=== PATIENT | female | born 1970 | race Caucasian/White ===

== ENCOUNTER 2018-12-27 22:42 | Emergency (ER) | payer BC ==
--- NOTE | 2018-12-27 23:05 | ED ---
Complex/Multi-Sys Presentation - HPI Summary HPI Summary: This patient is a 48 year old F presenting to ED with a chief complaint of numbness in R hand and forearm since [employer]. The patient was in pharmacy and was exposed to Sevoflurane, which is usually stored in a glass bottle. She touched it with her hand and held it. Patient was given Benadryl 25mg PO in Pharmacy [employer]. The patient rates the pain 0/10 in severity. Symptoms aggravated by nothing. Symptoms alleviated by nothing. - History Of Current Complaint Chief Complaint: EDAllergicReaction Time Seen by Provider: 12/27/18 22:53 Hx Obtained From: Patient Onset/Duration: Sudden Onset, Lasting Minutes, Still Present Timing: Constant Severity Currently: None Aggravating Factor(s): nothing Alleviating Factor(s): nothing Associated Signs And Symptoms: Positive: Other - numbness in R hand and forearm - Allergies/Home Medications Allergies/Adverse Reactions: Allergies Allergy/AdvReac Type Severity Reaction Status Date / Time anesthectics Allergy Anaphylatic Uncoded 12/27/18 22:44 Shock PMH/Surg Hx/FS Hx/Imm Hx Endocrine/Hematology History: Denies: Hx Diabetes Cardiovascular History: Denies: Hx Coronary Artery Disease, Hx Hypertension Infectious Disease History: No Infectious Disease History: Denies: Traveled Outside the [place] in Last 30 Days - Family History Known Family History: Positive: Diabetes, Other Negative: Blood Disorder Family History: CA and CHF in mother - Social History Alcohol Use: None Hx Substance Use: No Substance Use Type: Reports: None Hx Tobacco Use: No Smoking Status (MU): Never Smoked Tobacco Review of Systems Negative: Fever Positive: Numbness - in R hand and forearm due to exposure to Sevoflurane All Other Systems Reviewed And Are Negative: Yes Physical Exam - Summary Physical Exam Summary: VITAL SIGNS: Reviewed. GENERAL: Patient is a well-developed and nourished FEMALE who is lying comfortable in the stretcher. Patient is not in any acute respiratory distress. Patient seems anxious and concerned. HEAD AND FACE: No signs of trauma. No ecchymosis, hematomas or skull depressions. No sinus tenderness. EYES: PERRLA, EOMI x 2, No injected conjunctiva, no nystagmus. EARS: Hearing grossly intact. Ear canals and tympanic membranes are within normal limits. MOUTH: Oropharynx within normal limits. NECK: Supple, trachea is midline, no adenopathy, no JVD, no carotid bruit, no c- spine tenderness, neck with full ROM. CHEST: Symmetric, no tenderness at palpation LUNGS: Clear to auscultation bilaterally. No wheezing or crackles. CVS: Regular rate and rhythm, S1 and S2 present, no murmurs or gallops appreciated. ABDOMEN: Soft, non-tender. No signs of distention. No rebound no guarding, and no masses palpated. Bowel sounds are normal. EXTREMITIES: FROM in all major joints, no edema, no cyanosis or clubbing. Decreased sensation in R side from hand to distal forearm. NEURO: Alert and oriented x 3. No acute neurological deficits. Speech is normal and follows commands. SKIN: Dry and warm Triage Information Reviewed: Yes Vital Signs On Initial Exam: Initial Vitals Temp Pulse Resp BP Pulse Ox 97.3 F 63 20 173/79 99 12/27/18 22:44 12/27/18 22:44 12/27/18 22:44 12/27/18 22:44 12/27/18 22:44 Vital Signs Reviewed: Yes Diagnostics - Vital Signs Vital Signs Temp Pulse Resp BP Pulse Ox 12/27/18 22:51 51 100 12/27/18 22:44 97.3 F 63 20 173/79 99 - Laboratory Lab Statement: Any lab studies that have been ordered have been reviewed, and results considered in the medical decision making process. Re-Evaluation - Re-Evaluation First Eval Re-Evaluation Time: 23:52 Change: Improved Comment: The patient feels better. She no longer feels numbness. Discussed plan for discharge. Patient understands and agrees with this plan. Complex Multi-Symp Course/Dx Assessment/Plan: This patient is a 48 year old F presenting to ED with a chief complaint of numbness in R hand and forearm since [employer] s/p exposure to Sevoflurane. Sevoflurane is short acting so should be out of her system by now. Her sx is most likely anxiety. She will be kept in ED for a while to be watched. Patient was reassured. The patient no longer feels numb in the ED. Patient will be discharged with dx of accidental medication exposure. Patient understands and agrees with this plan. - Diagnoses Differential Diagnoses/HQI/PQRI: Other - accidental medication exposure Provider Diagnoses: Accidental medication error Discharge - Sign-Out/Discharge Documenting (check all that apply): Patient Departure - discharge Patient Received Moderate/Deep Sedation with Procedure: No - Discharge Plan Condition: Stable Disposition: HOME Patient Education Materials: Paresthesia (ED) Referrals: [facility] [Outside] - 3 Days Additional Instructions: PLEASE RETURN TO THE ED TO IMMEDIATELY FOR WORSENING OR CONCERNING SYMPTOMS. - Attestation Statements Document Initiated by Scribe: Yes Documenting Scribe: Herberth Randall Provider For Whom Scribe is Documenting (Include Credential): Fred Hess MD Scribe Attestation: IHerberth, scribed for Fred Hess MD on 12/27/18 at 1275. Status of Scribe Document: Ready
[2018-12-27 23:53] VITALS: BP 120/72
== END 2018-12-28 00:02 | disposition home or self-care (01) ==
LOC: ED 22:42
DX: R20.0 Anesthesia of skin (principal); T41.295A Adverse effect of other general anesthetics, initial encounter; Y92.89 Other specified places as the place of occurrence of the external cause; Z88.4 Allergy status to anesthetic agent
CPT/HCPCS: 99282